=== PATIENT | male | born 1975 | race Caucasian/White ===

== ENCOUNTER → 2024-01-13 | Outpatient (CLI) | payer BC, OTHER | END | disposition home or self-care (01) | LOC: LAB 07:15 → LAB SHORT 07:15 | DX: N53.12 Painful ejaculation (principal); R30.0 Dysuria; R35.0 Frequency of micturition ==

== ENCOUNTER 2024-05-09 10:07 | Emergency (ER) | payer OTHER ==
[~2024-05-09] VITALS: Ht 182.9 cm; Wt 90.7 kg
[2024-05-09 10:40] VITALS: BP 124/88
[2024-05-09] MEDS ORDERED: Amoxicillin500 MG PO (10:43)
== END 2024-05-09 10:44 | disposition home or self-care (01) ==
LOC: ER 10:07
DX: K04.7 Periapical abscess without sinus (principal)
CPT/HCPCS: 99282

== ENCOUNTER 2024-08-23 20:52 | Emergency (ER) | payer OTHER ==
[~2024-08-23] VITALS: Ht 182.9 cm; Wt 90.7 kg
[~2024-08-23 20:52] MED LIST: Amoxicillin500 MG PO
[2024-08-23 21:02] VITALS: BP 136/90
[2024-08-23 21:30] LABS: BASOPHILS ABSOLUTE AUTO 0.08 K/mm3 (0.00-0.23); BASOPHILS PERCENT AUTO 1 % (0-2); EOSINOPHILS ABSOLUTE AUTO 0.35 K/mm3 (0.00-0.68); EOSINOPHILS PERCENT AUTO 3 % (0-6); Hemoglobin 13.6 g/dL (13.5-17.5); IMMATURE GRAN ABSOLUTE AUTO 0.05 K/mm3 (0.00-0.10); IMMATURE GRAN PERCENT AUTO 0 % (0-1); LYMPHOCYTES ABSOLUTE AUTO 2.55 K/mm3 (0.84-5.20); LYMPHOCYTES PERCENT AUTO 22 % (21-46); MONOCYTES ABSOLUTE AUTO 0.82 K/mm3 (0.16-1.47); MONOCYTES PERCENT AUTO 7 % (4-13); Mean Corpuscular HGB 30.8 pg (26.0-34.0); Mean Corpuscular Volume 91 fL (80-100); Mean Platelet Volume 9.7 fL (9.1-12.4); NEUTROPHILS ABSOLUTE AUTO 7.74 K/mm3 (1.96-9.15); NEUTROPHILS PERCENT AUTO 67 % (41-73); Platelet Count 364 K/mm3 (150-400); RDW Coefficient Variation 12.8 % (11.7-14.2); Red Blood Cell Count 4.41 M/mm3 (4.30-5.90); White Blood Cell Count 11.59 K/mm3 (4.00-11.30)
[2024-08-23 21:56] LABS: Albumin, Blood 3.8 g/dL (3.4-5.0); Albumin/Globulin Ratio 1.2 (0.8-1.8); Bilirubin, Total 0.3 mg/dL (0.1-1.0); Bun/Creatinine Ratio 24.2 (12.0-20.0); Calcium, Blood 9.8 mg/dL (8.5-10.1); Creatinine, Blood 0.91 mg/dL (0.60-1.20); Globulin, Blood 3.3 g/dL (2.2-4.0); Potassium, Blood 3.8 mmol/L (3.5-5.5); Total Protein, Blood 7.1 g/dL (6.4-8.2)
== END 2024-08-24 00:42 | disposition home or self-care (01) ==
LOC: ER 20:52
PROVIDERS: Physician Assistant
DX: R07.2 Precordial pain (principal)
CPT/HCPCS: 71046; 80053; 84484; 85025; 93005; 93010; 99285-25

== ENCOUNTER 2025-01-04 10:37 | Day surgery (SDC) | payer OTHER ==
[~2025-01-04] VITALS: Ht 182.9 cm; Wt 85.5 kg
[~2025-01-04 10:37] MED LIST changes: +Lactated Ringer's 1,000 ML IV ONE; +propofoL 50 ML IV ONE
[2025-01-04] MEDS ORDERED: GABA800 (10:55)
[2025-01-04] MEDS ORDERED: ZIPR80 (10:56)
[2025-01-04] MEDS ORDERED: Lactated Ringer's 1,000 ML IV ONE (12:15)
[2025-01-04 13:43] VITALS: BP 113/83
== END 2025-01-04 13:37 | disposition home or self-care (01) ==
LOC: ORSCSDS 10:37
PROVIDERS: Internal Medicine Gastroenterology
PROC: 0DB58ZX Excision of Esophagus, Via Natural or Artificial Opening Endoscopic, Diagnostic (ICD-10-PCS; principal; 2025-01-04 12:00)
PROC: 0DB68ZX Excision of Stomach, Via Natural or Artificial Opening Endoscopic, Diagnostic (ICD-10-PCS; principal; 2025-01-04 12:00)
DX: R13.10 Dysphagia, unspecified (principal); C15.9 Malignant neoplasm of esophagus, unspecified; C16.9 Malignant neoplasm of stomach, unspecified; F32.A Depression, unspecified; K21.9 Gastro-esophageal reflux disease without esophagitis; F43.10 Post-traumatic stress disorder, unspecified; F17.210 Nicotine dependence, cigarettes, uncomplicated; Z79.899 Other long term (current) drug therapy
CPT/HCPCS: 88305; 88360; 88374; J2704; J7120

== ENCOUNTER 2025-02-28 16:38 | Observation (INO) | payer OTHER ==
[~2025-02-28] VITALS: Ht 180.3 cm; Wt 76.7 kg
[~2025-02-28 16:38] MED LIST changes: +GABA800; -Lactated Ringer's 1,000 ML IV ONE; +ZIPR80 PO; -propofoL 50 ML IV ONE
[2025-02-28] MEDS ORDERED: Ondansetron 4 MG SoluTab SL ONE (18:10)
[2025-02-28] MEDS ORDERED: Sodium Bicarbonate 650 MG Tab PO ONE (19:35)
[2025-02-28] MEDS ORDERED: Amylase/Lipase/Protease DR Cap 12,000 PO SCH (19:35)
[2025-02-28 21:51] LABS: BASOPHILS ABSOLUTE AUTO 0.05 K/mm3 (0.00-0.23); BASOPHILS PERCENT AUTO 1 % (0-2); EOSINOPHILS PERCENT AUTO 0 % (0-6); Hematocrit 28.4 % (37.0-53.0); Hemoglobin 8.5 g/dL (13.5-17.5); IMMATURE GRAN ABSOLUTE AUTO 0.06 K/mm3 (0.00-0.10); IMMATURE GRAN PERCENT AUTO 1 % (0-1); LYMPHOCYTES ABSOLUTE AUTO 0.69 K/mm3 (0.84-5.20); LYMPHOCYTES PERCENT AUTO 9 % (21-46); MONOCYTES ABSOLUTE AUTO 0.47 K/mm3 (0.16-1.47); MONOCYTES PERCENT AUTO 6 % (4-13); Mean Corpuscular HGB 24.6 pg (26.0-34.0); Mean Corpuscular HGB Conc 29.9 g/dL (31.5-36.5); Mean Corpuscular Volume 82 fL (80-100); Mean Platelet Volume 9.7 fL (9.1-12.4); NEUTROPHILS ABSOLUTE AUTO 6.27 K/mm3 (1.96-9.15); NEUTROPHILS PERCENT AUTO 83 % (41-73); Platelet Count 548 K/mm3 (150-400); RDW Coefficient Variation 20.2 % (11.7-14.2); Red Blood Cell Count 3.45 M/mm3 (4.30-5.90); White Blood Cell Count 7.54 K/mm3 (4.00-11.30)
[2025-02-28 22:10] LABS: Albumin, Blood 3.4 g/dL (3.4-5.0); Bilirubin, Total 0.4 mg/dL (0.1-1.0); Bun/Creatinine Ratio 24.4 (12.0-20.0); Calcium, Blood 8.8 mg/dL (8.5-10.1); Creatinine, Blood 0.94 mg/dL (0.60-1.20); Globulin, Blood 3.4 g/dL (2.2-4.0); Potassium, Blood 4.1 mmol/L (3.5-5.5); Total Protein, Blood 6.8 g/dL (6.4-8.2)
[2025-02-28] MEDS ORDERED: NS 1,000 ML IV SCH ×2 (22:25→23:20)
[2025-03-01] VITALS (7 sets, daily range): BP systolic 94–111; BP diastolic 60–76
[2025-03-01] MEDS ORDERED: Ondansetron HCl 2 MG / ML 2ML Vial IV PRN (01:20)
[2025-03-01] MEDS ORDERED: OXYC5 PO (01:45)
[2025-03-01] MEDS ORDERED: DEXA4 PO (01:48)
--- NOTE | 2025-03-01 01:53 | NUR ---
HOME MEDS: PT'S HOME MEDS-GABAPENTIN, DEXAMETHASONE, ZIPRASIDONE, AND 99 TABS OF 5MG OXYCODONE SENT UP TO PHARMACY. OXYCODONE COUNTED AND VERIFIED W/PHARMACIST. MEDS LOCKED IN PHARMACY VAULT. RECEIPT GIVEN TO PT.
--- NOTE | 2025-03-01 02:09 | NUR ---
ARRIVAL TO UNIT PT ARRIVED TO UNIT FROM ED VIA WC AT 0115 TODAY. PT A/OX4 WITH VSS. IND IN ROOM WITH STEADY GATE. PLEASANT AND COOPERATIVE WITH CARE. IV PATENT AND SL TO RIGHT AC. J TUBE LLQ CDI. PORT TO RUQ NOT ACCESSED AND OPEN TO AIR, SKIN RED BUT BLANCHABLE AROUND PORT. PT IS NPO PENDING POSSIBLE INTERVENTION AM WITH IR. PT ABLE TO SHOWER SELF. HOME MEDS SEND TO PHARMACY- SEE SLIP IN CHART. ORIENTATION TO ROOM, FALL RISK PREVENTION AND SAFETY PROVIDED. PT VERBALIZED UNDERSTANDING. PT DENIES CHEST PAIN OR SOB. REPORTS SOME NAUSEA, REQUESTING ZOFRAN. WILL MEDICATED PER ORDERS. PT CURRENTLY RESTING IN BED ON PHONE. DENIES OTHER NEEDS. HAS CALL LIGHT IN REACH.
[2025-03-01] MEDS ORDERED: OxyCODONE HCL 5 MG TAB PO PRN (03:00)
[2025-03-01 05:07] LABS: Hematocrit 26.5 % (37.0-53.0); Hemoglobin 7.8 g/dL (13.5-17.5); Mean Corpuscular HGB 24.4 pg (26.0-34.0); Mean Corpuscular HGB Conc 29.4 g/dL (31.5-36.5); Mean Corpuscular Volume 83 fL (80-100); Mean Platelet Volume 10.3 fL (9.1-12.4); Platelet Count 504 K/mm3 (150-400); RDW Standard Deviation 57.9 fL (35.1-46.3); White Blood Cell Count 6.15 K/mm3 (4.00-11.30)
[2025-03-01 05:29] LABS: Bun/Creatinine Ratio 27.1 (12.0-20.0); Calcium, Blood 8.7 mg/dL (8.5-10.1); Creatinine, Blood 0.88 mg/dL (0.60-1.20); Potassium, Blood 4.1 mmol/L (3.5-5.5)
[2025-03-01] MEDS ORDERED: Gabapentin 300 MG Cap PO SCH ×2 (09:00)
[2025-03-01] MEDS ORDERED: Ziprasidone HCL 20 MG Cap PO SCH ×2 (09:00)
[2025-03-01] MEDS ORDERED: dexAMETHasone 4 MG TAB PO SCH (09:00)
[2025-03-01] MEDS ORDERED: OMEPRAZOLE20 M1 PO (10:46)
[2025-03-01] MEDS ORDERED: PROAIR RESPICL90 MCG INH (10:46)
[2025-03-01] MEDS ORDERED: GABAPENTIN600 MG PO (10:47)
[2025-03-01] MEDS ORDERED: ONDA8 PO (10:47)
[2025-03-01] MEDS ORDERED: ZANAFLEX413 PO (10:48)
[2025-03-01] MEDS ORDERED: LORAZEPAM0.5 MG PO (10:48)
[2025-03-01 11:12] LABS: Hematocrit 25.8 % (37.0-53.0); Hemoglobin 7.7 g/dL (13.5-17.5); Mean Corpuscular HGB 24.7 pg (26.0-34.0); Mean Corpuscular HGB Conc 29.8 g/dL (31.5-36.5); Mean Corpuscular Volume 83 fL (80-100); Mean Platelet Volume 9.9 fL (9.1-12.4); Platelet Count 474 K/mm3 (150-400); RDW Coefficient Variation 19.9 % (11.7-14.2); RDW Standard Deviation 57.9 fL (35.1-46.3); Red Blood Cell Count 3.12 M/mm3 (4.30-5.90); White Blood Cell Count 5.92 K/mm3 (4.00-11.30)
--- NOTE | 2025-03-01 11:56 | NUR ---
IR IN TO SEE PATIENT IR DR WAS ABLE TO FLUSH J-TUBE AND IT IS UNCLOGGED. PATIENT DENIES RELFLUX, PAIN OR NAUSEA. DR BRUNO NOTIFIED OF OUTCOME AND PATIENT IS ORDERED FULL LIQ DIET. TOLERATING DIET WELL. ORDER FOR IRON PLACED WITH FOLLOW UP LABS FROM DR. BRUNO. CALL LIGHT IS IN REACH.
[2025-03-01] MEDS ORDERED: Iron Dextran 50 MG / ML 2ML Vial IV ONE (12:30)
[2025-03-01] MEDS ORDERED: FERSU300 PO (13:19)
[2025-03-01] MEDS ORDERED: Iron Dextran 975 MG in NS 250 ML IV ONE (13:30)
--- NOTE | 2025-03-01 16:28 | NUR ---
DISCHARGE PATIENTJ-TUBE FLUSHED TODAY AND IRON INFUSION IS DONE. LABS PENDING. PATIENT IS DISCHARGED HOME WITH DC INSTRUCTIONS READ AND SIGNED, ALL HOME PRESCRIIPTION MEDICATIONS GIVEN BACK TO PATIENT FROM PHARMACY. FOLLOW UP APPOINTMENT INSTRUCTIONS FOR PRIMARY CARE. VSS, IV TAKEN OUT INTACT AND PATIENT WALKS OUT TO AWAITING CAR.
[2025-03-01 16:34] LABS: Hematocrit 26.8 % (37.0-53.0); Hemoglobin 8.1 g/dL (13.5-17.5); Mean Corpuscular HGB 24.7 pg (26.0-34.0); Mean Corpuscular HGB Conc 30.2 g/dL (31.5-36.5); Mean Corpuscular Volume 82 fL (80-100); Mean Platelet Volume 10.1 fL (9.1-12.4); Platelet Count 496 K/mm3 (150-400); RDW Coefficient Variation 19.6 % (11.7-14.2); RDW Standard Deviation 57.1 fL (35.1-46.3); Red Blood Cell Count 3.28 M/mm3 (4.30-5.90); White Blood Cell Count 5.58 K/mm3 (4.00-11.30)
== END 2025-03-01 16:16 | disposition home or self-care (01) ==
LOC: ER 16:38 → SURS 23:17
PROVIDERS: Family Medicine; Student in an Organized Health Care Education/Training Program; ADMIT Internal Medicine
DX: K94.13 Enterostomy malfunction (principal); C15.9 Malignant neoplasm of esophagus, unspecified; D50.9 Iron deficiency anemia, unspecified; Z79.899 Other long term (current) drug therapy
CPT/HCPCS: 36415; 80048; 80053; 85025; 85027; 96374; 96375; 96376; 99284; A9270; G0378; J1750; J2405; J7030; J7050

== ENCOUNTER 2025-08-07 21:00 | Emergency (ER) | payer OTHER ==
[~2025-08-07] VITALS: Ht 182.9 cm; Wt 79.4 kg
[~2025-08-07 21:00] MED LIST changes: +DEXA4 PO; +FERSU300 PO; +GABAPENTIN600 MG PO; +LORAZEPAM0.5 MG PO; +OMEPRAZOLE20 M1 PO; +ONDA8 PO; +OXYC5 PO; +PROAIR RESPICL90 MCG INH; +ZANAFLEX413 PO
[2025-08-07 21:11] VITALS: BP 99/65
[2025-08-07 21:39] LABS: BASOPHILS ABSOLUTE AUTO 0.09 K/mm3 (0.00-0.23); BASOPHILS PERCENT AUTO 2 % (0-2); EOSINOPHILS ABSOLUTE AUTO 0.18 K/mm3 (0.00-0.68); EOSINOPHILS PERCENT AUTO 4 % (0-6); Hematocrit 32.9 % (37.0-53.0); Hemoglobin 10.4 g/dL (13.5-17.5); IMMATURE GRAN ABSOLUTE AUTO 0.01 K/mm3 (0.00-0.10); IMMATURE GRAN PERCENT AUTO 0 % (0-1); LYMPHOCYTES ABSOLUTE AUTO 1.79 K/mm3 (0.84-5.20); LYMPHOCYTES PERCENT AUTO 43 % (21-46); MONOCYTES ABSOLUTE AUTO 1.10 K/mm3 (0.16-1.47); MONOCYTES PERCENT AUTO 27 % (4-13); Mean Corpuscular HGB Conc 31.6 g/dL (31.5-36.5); Mean Corpuscular Volume 88 fL (80-100); NEUTROPHILS ABSOLUTE AUTO 0.95 K/mm3 (1.96-9.15); NEUTROPHILS PERCENT AUTO 23 % (41-73); NRBC ABSOLUTE 0.00 K/mm3 (0.00-0.02); NRBC Auto 0.0 /100 WBC (0.0-0.2); Platelet Count 267 K/mm3 (150-400); RDW Coefficient Variation 14.6 % (11.7-14.2); RDW Standard Deviation 47.0 fL (35.1-46.3)
[2025-08-07 22:03] LABS: Alanine Aminotransfer (ALT/SGP 22.0 U/L (12-78); Albumin, Blood 3.0 g/dL (3.4-5.0); Albumin/Globulin Ratio 0.9 (0.8-1.8); Anion Gap 9.0 mmol/L (3-11); Aspartate Aminotrans (AST/SGOT 19.0 U/L (12-37); Bilirubin, Total 0.1 mg/dL (0.1-1.0); Blood Urea Nitrogen 6.0 mg/dL (8-24); CO2, Blood 24.0 mmol/L (21-32); Calcium, Blood 7.9 mg/dL (8.5-10.1); Chloride, Blood 108.0 mmol/L (98-108); Creatinine, Blood 0.79 mg/dL (0.60-1.20); Globulin, Blood 3.3 g/dL (2.2-4.0); Glucose, Blood 139.0 mg/dL (70-99); Potassium, Blood 3.1 mmol/L (3.5-5.5); Sodium, Blood 138.0 mmol/L (136-145); Total Protein, Blood 6.3 g/dL (6.4-8.2)
== END 2025-08-07 22:58 | disposition home or self-care (01) ==
LOC: ER 21:00
PROVIDERS: Physician Assistant
DX: K94.23 Gastrostomy malfunction (principal); Z59.89 Other problems related to housing and economic circumstances
CPT/HCPCS: 80053; 85025; 93005; 93010; 99283-25

== ENCOUNTER 2025-08-15 09:22 | Day surgery (SDC) | payer OTHER ==
[2025-08-15 09:48] VITALS: BP 114/73
[2025-08-15] MEDS ORDERED: ACET500 PO (09:56)
[2025-08-15] MEDS ORDERED: Lidocaine 2% Jelly Uro-Jet ONE (10:09)
--- NOTE | 2025-08-15 10:58 | NUR ---
PT AMBULATED BACK TO RECOVERY ROOM. J-TUBE SITE NO HEMATOMA, NO BLEEDING AND INTACT DRESSING. DISCHARGE INSTRUCTIONS REVIEWED ALL QUESTIONS ANSWERED. PT AMBULATED OUT.
== END 2025-08-15 11:00 | disposition home or self-care (01) ==
LOC: MHTC 09:22
DX: K94.13 Enterostomy malfunction (principal); Z98.890 Other specified postprocedural states; Z90.49 Acquired absence of other specified parts of digestive tract; R13.10 Dysphagia, unspecified
CPT/HCPCS: C1729; C1769; C1887; Q9967